=== PATIENT | female | born 1945 | race Caucasian/White ===

== ENCOUNTER 2016-11-30 00:47 | Inpatient (IN) | payer OTHER, MEDICARE ==
[~2016-11-30] VITALS: Ht 154.9 cm; Wt 72.6 kg
[~2016-11-30 00:47] MED LIST: ST. JOSEPH ASPI81 M1 PO; SYNTHROID75 MCG PO; VITAMIN D-32000 UNI1 PO
--- NOTE | 2016-11-30 09:55 | RADIOLOGY REPORT ---
EXAMINATION: XR HIP, LEFT CLINICAL INFORMATION: Status post left hip replacement. COMPARISON: None. TECHNIQUE: Two views of the left hip. FINDINGS: There is a left hip prosthesis. The acetabular and femoral components appear well aligned. There is no hardware fracture. There is no osseous fracture. There are postsurgical changes including subcutaneous gas. IMPRESSION: Status post left hip replacement. Expected postoperative findings. No evidence of hardware failure.
--- NOTE | 2016-11-30 10:02 | Admission Core Measures ---
Admission Meds I reviewed the following Meds: Current Medications Sig/Won Start time Last Medication Dose Stop Time Status Admin Acetaminophen 975 MG ONCE 11/30 0000 NR (Tylenol) 11/30 2358 Cefazolin Sodium 2,000 MG ONCE 11/30 NR (Kefzol-Ancef Inj) 11/30 2358 Levothyroxine Sodium 0.075 MG DAILY 11/30 1000 AC (Synthroid) Oxycodone HCl 10 MG ONCE 11/30 0000 NR (Roxicodone) 11/30 2358 Acute Coronary Syndrome Inclusion Criteria ACS Diagnosis No Inpatient Core Measures LDL Reminder: If No, please order W/I first 24hr of stay Congestive Heart Failure Inclusion Criteria CHF Diagnosis No Cerebrovascular accident Inclusion Criteria CVA/TIA Diagnosis No Inpatient Core Measures Bedside Swallow Eval Reminder: If BSE failed, place ST order Antithrombotic Reminder: Order Antithrombotic Medication by end of day 2 Antithrombotic Reminder: Document Reason Antithrombotic Not ordered by end of day 2 AFIB/Flutter Reminder: If Present, add to problem list AFIB/Flutter Reminder: Order Anticoag Medication for pts with AFIB/Flutter Atherosclerosis Reminder: If Present, add to problem list LDL Reminder: If No, please order W/I first 24hr of stay PT Order Reminder: If No, please order Venous thromboembolism Inpatient Core Measures VTE Risk Factors: Age > 40, [facility] prophylaxis d/t No contraindications No VTE Pharm Prophylaxis d/t No contraindications Inclusion Criteria - Per Current guidelines, there needs to be overlap - treatment for the first 5 days of Warfarin therapy. - Parenteral Anticoagulation (IV or SC) needs to be - given along with Warfarin therapy. VTE Diagnosis No VTE Type NONE VTE Confirmed by (Test) NONE Problem List As ranked by this Provider includes Assessment & Plan 1. Unilateral primary osteoarthritis, left hip HOME MEDS Home Med List Aspirin ([place] Aspirin) 81 MG TABLET. 1 TAB PO D HEARTHEALTH (Reported ) Cholecalciferol (Vitamin D3) (Vitamin D-3) 2,000 UNIT CAPSULE 1 TAB PO D SUPPLEMENT (Reported) Levothyroxine Sodium (Synthroid) 75 MCG TABLET 1 TAB PO DAILY THYROID ( Reported)
[2016-11-30] MEDS ORDERED: MIRALAX17 G1 PO (10:03)
[2016-11-30] MEDS ORDERED: DILAUDID2 M1 PO (10:03)
[2016-11-30] MEDS ORDERED: COLACE100 M1 PO (10:03)
[2016-11-30] MEDS ORDERED: MS CONTIN15 M2 PO (10:03)
[2016-11-30] MEDS ORDERED: ASPIRIN EC325 M2 PO (10:03)
--- NOTE | 2016-11-30 10:07 | Patient Discharge Instructions ---
Discharge Instructions General Discharge Information You were seen/treated for: Left hip pain related to unilateral primary osteoarthritis You had these procedures: Left total hip replacement Watch for these problems: Increasing pain despite the use of pain medication Increasing redness, warmth or swelling Drainage of any type from incision Inability to bear weight on operative leg Persistent nausea and vomiting Fever greater than 101.5 degrees Do not soak the wound: Yes No bath, but you may shower: Yes Other wound care: Please keep wound clean and dry. No ointments or lotions of any type on or near incision at any time. No exceptions. Your dressing will be changed by your nurse on the second day after your surgery. Daily dry dressing changes are recommended each day thereafter. Do not soak your wound in a bath at any time until otherwise indicated by your surgeon. You may shower, please dry wound immediately after shower with a clean towel. Special Instructions: Aspirin: You are taking this medication to help prevent blood clot formation. Please take with food to protect your stomach lining. Please take as directed. Constipation: Pain medication can cause constipation. Dr. Bowden has recommended that you take Colace and miralax each day. You may discontinue this medication if you develop loose stool or diarrhea. If you wish to continue this medication, it is available over the counter. If you are unable to move your bowels after several days, if you are unable to pass gas and are developing bloating, nausea, or vomiting as a result, please contact your doctor. Diet Continue normal diet: Yes Recommended Diet: Regular Activity Full Activity/No Limits: No Activity Self Limited: Yes Pounds, do NOT lift more than: 10 Activity Limited to: Weight bear as tolerated Acute Coronary Syndrome Inclusion Criteria At DC or during hospital stay patient has or had the following: ACS DIAGNOSIS No Discharge Core Measures Meds if any: Prescribed or Continued at Discharge Meds if any: NOT Prescribed or Continued at Discharge Congestive Heart Failure Inclusion Criteria At DC or during hospital stay patient has or had the following: CHF DIAGNOSIS No Discharge Core Measures Meds if any: Prescribed or Continued at Discharge Meds if any: NOT Prescribed or Continued at Discharge Cerebrovascular accident Inclusion Criteria At DC or during hospital stay patient has or had the following: CVA/TIA Diagnosis No Discharge Core Measures Meds if any: Prescribed or Continued at Discharge Meds if any: NOT Prescribed or Continued at Discharge Venous thromboembolism Inclusion Criteria VTE Diagnosis No VTE Type NONE VTE Confirmed by (Test) NONE Discharge Core Measures - Per Current guidelines, there needs to be overlap - treatment for the first 5 days of Warfarin therapy. - If discharged on Warfarin prior to 5 days of - overlap therapy, the patient will need to be - assessed for post discharge needs including - *Post discharge parental anticoagulation - *Warfarin and/or parental anticoagulation education - *Follow up date to check INR post discharge At least 5 days overlap therapy as Inpatient No Meds if any: Prescribed or Continued at Discharge Note: Overlap Therapy is Warfarin and Anticoagulant Meds if any: NOT Prescribed or Continued at Discharge
--- NOTE | 2016-11-30 10:10 | Surgical Discharge Summary ---
Visit Information Visit Dates Admission Date: 11/30/16 Discharge Date: 12/01/16 History of Present Illness Chief Complaint: Left hip pain related to unilateral primary osteoarthritis Medical History Isolation History: Standard Surgical History Pertinent Surgical History: non-contributory Review of Systems: See H&P Hospital Course Course Attending Physician: ABIGAIL FARNSWORTH MD Primary Care Physician: NINOSKA FLYNN MD Hospital Course: Patient was admitted to the hospital for an elective total joint replacement. The procedure was tolerated well and patient was transferred to a general surgical floor. Diet was advanced and tolerated, and the patient voided spontaneously. The patient was evaluated and treated by physical therapy. At the time of hospital discharge, the vital signs were stable, neurovascular status was intact, and pain was controlled with the use of oral pain medications. Allergies: Coded Allergies: No Known Allergies (11/21/16) Disposition Summary Disposition Principal Diagnosis: Left hip unilateral primary osteoarthritis Additional Diagnosis: None Discharge Disposition: home health services Discharge Instructions General Discharge Information Code Status: Full Code Patient's Diet: Regular, advance as tolerated Patient's Activity: WBAT Follow-Up Instructions/Appts: Follow up with Dr. Farnsworth in 6 weeks from date of surgery. Please call his office to arrange and/or confirm this appointment. Medications at Discharge Discharge Medications: Stop taking the following medications: Aspirin ([place] Aspirin) [address].DR CARDOZO Every Day Continue taking these medications: Levothyroxine Sodium (Synthroid) 75 MCG TABLET 1 Tablet ORAL DAILY Comments: Last Taken:12/01/16 Time:06:15 AM Cholecalciferol (Vitamin D3) (Vitamin D-3) 2,000 UNIT CAPSULE 1 Tablet ORAL Every Day Comments: NOT GIVEN IN HOSPITAL Start taking the following new medications: Aspirin (Ecotrin*) 325 MG TABLET. 1 Tablet ORAL TWICE DAILY Qty = 60 No Refills Comments: Last Taken:12/01/16 Time:09:45AM Docusate Sodium (Colace) 100 MG CAPSULE 1 Capsule ORAL TWICE DAILY Qty = 14 No Refills Instructions: DISCONTINUE USE IF YOU DEVELOP LOOSE STOOL OR DIARRHEA Comments: Last Taken:12/01/16 Time:09:45 AM Polyethylene Glycol 3350 (Miralax) 17 GRAM POWD.PACK 1 Packet ORAL DAILY Qty = 7 No Refills Instructions: dissolve in water, DISCONTINUE USE IF YOU DEVELOP LOOSE STOOL OR DIARRHEA Comments: Last Taken:12/01/16 Time: 09:45AM Hydromorphone HCl (Dilaudid) 2 MG TABLET 1-2 Tablet ORAL EVERY 4-6 HOURS NEEDED as needed for PAIN Qty = 36 No Refills Comments: Last Taken:12/01/16 Time:03:45AM 2MG GIVEN Morphine Sulfate (Ms Contin) 15 MG TABLET.ER 1 Tablet ORAL TWICE DAILY Qty = 2 No Refills Comments: NOT GIVEN IN HOSPITAL
--- NOTE | 2016-11-30 12:00 | NUR ---
ADMISSION NOTE: PT ARRIVED TO FLOOR IN STRETCHER WITH DISTRIBUTION AND WAS MET BY PT. ORTHO BP/PULSE WAS: SUPINE 121/62, 78, SITTING 148/88, 83, STANDING 149/111, 80. A/OX3, ROOM AIR, +CMS, IV INTACT, IVF RUNNING PER MD ORDER, ALPS ON. PT INCONTINENT OF URINE X2 DUE TO NUMBNESS TO AREA. PAIN 0/10. DSG TO LEFT HIP C/D/I. ORIENTED TO ROOM. WILL CONTINUE TO MONITOR.
[2016-11-30 12:05] VITALS: BP 94/60
--- NOTE | 2016-11-30 13:37 | PN- Orthopedic ---
Subjective Subjective: POST-OP NOTE: No complaints. No pain at this moment. Ambulated once already. No dizziness. No shortness of breath. No chest pains. Voided once post-op without difficulty. Shes weary of taking narcotic pain medication, as she had adverse effects in her past "on a morphine drip" after a previous surgery. Her goal is to go home tomorrow. Objective Vital Signs and I&Os Vital Signs Date Time Temp Pulse Resp B/P B/P Pulse O2 O2 Flow FiO2 Mean Ox Delivery Rate 11/30 1205 97.6 70 18 94/60 95 Room Air Intake & Output 11/30 1600 11/30 0800 11/30 0000 11/29 1600 11/29 0800 11/29 0000 Intake Total Output Total Balance Patient 160 lb Weight Weight Reported by Patient Measurement Method Physical Exam: General - alert & oriented x 3. out of bed to chair. no acute distress. Lungs - clear bilaterally. no w/r/r. Cardiac - s1s2. reg. Abdomen - soft. nontender. Extremities - left hip dressing c/d/i. no drains. no hematoma. nvi. calves soft and nontender b/l. Current Medications: Current Medications Sig/Won Start time Last Medication Dose Route Stop Time Status Admin Acetaminophen 1,000 MG Q6 11/30 1200 AC 11/30 IV 12/01 0601 1219 Acetaminophen 0 .STK-MED ONE 11/30 0715 DC PO Acetaminophen 975 MG ONCE 11/30 0000 DC PO 11/30 2359 Aspirin 325 MG BID 11/30 1000 AC PO Cefazolin Sodium 2 GM IQ8 11/30 1600 AC N/A 1 UNIT IV 12/01 0029 Cefazolin Sodium 2,000 MG ONCE 11/30 0000 DC IV 11/30 2359 Dextrose/Sodium 1,000 ML .[id number] 11/30 1215 AC 11/30 Chloride IV 1218 Docusate Sodium 100 MG BID 11/30 1000 AC PO Hydromorphone HCl 2 MG Q4P PRN 11/30 1215 AC PO Hydromorphone HCl 4 MG Q4P PRN 11/30 1215 AC PO Ketorolac 15 MG Q8P PRN 11/30 1215 AC Tromethamine IV 12/03 1207 Levothyroxine Sodium 0.075 MG 0712/01 0700 AC PO Levothyroxine Sodium 0.075 MG DAILY 11/30 1000 DC PO Morphine Sulfate 2 MG Q2P PRN 11/30 1215 AC IV Omeprazole 40 MG DAILY AC 12/01 0700 AC PO Ondansetron HCl 4 MG Q6P PRN 11/30 1215 AC IV Oxycodone HCl 0 .STK-MED ONE 11/30 0716 DC PO Oxycodone HCl 10 MG ONCE 11/30 0000 DC PO 11/30 2359 Polyethylene Glycol 17 GM DAILY 11/30 1000 AC PO Promethazine HCl 12.5 MG Q6P PRN 11/30 1215 AC IV 12/07 0959 Assessment/Plan Assessment/Plan This 71 year old female with hx gerd, hypothyroidism, mvp, is POD#0 s/p left total hip replacement for unilateral primary osteoarthritis advance diet as tolerated pain control as ordered asa bid - dvt ppx ancef x 2 doses amanda-operatively PT eval home meds ordered d/c planning for home tomorrow will d/w Core Measures/Miscellaneous Venous Thromboembolism VTE Risk Factors: Age > 40, Surgery VTE Contraindications: No Contraindications VTE Diagnosis: No VTE Type: NONE VTE Confirmed by (Test): NONE Beta Jose Is Beta Jose a Home Med? No Antibiotics Is Patient on Antibiotics? Yes If Yes: prophylaxis
[2016-11-30 14:48] VITALS: BP 90/60
[2016-11-30 16:01] VITALS: BP 102/60
--- NOTE | 2016-11-30 17:39 | Operative Report ---
Operative/Inv Procedure Report Surgery Date: 11/30/16 Name of Procedure: Left total hip replacement Pre-Operative Diagnosis: Primary left hip DJD Post-Operative Diagnosis: Same Estimated Blood Loss: 250 Surgeon/Direct Support Worker: DAJA MAO,ABIGAIL Drew Anesthesia: block Operative/Procedure Note Note: Description of Procedure: The patient was taken to the operating room and positively identified. After induction of spinal anesthesia and administration of appropriate pre-operative antibiotics, the patient was positioned supine on the operating room table and all bony prominences were well padded. After performing a surgical timeout, the left lower extremity was prepped and draped in the usual sterile fashion. A direct anterior approach was made to the left hip. The incision was carried sharply through superficial soft tissues to the level of the fascia. Meticulous hemostasis was maintained with Bovie electocautery. The fascia over the tensor fascia karina muscle was opened sharply and the interval between the TFL and the sartorius was entered bluntly taking care to stay lateral to the lateral femoral cutaneous nerve. Retractors were placed around the femoral neck and the pericapsular fat was identified. The ascending branches of the lateral femoral circumflex vessels were identified and carefully coagulated. The pericapsular fat and anterior capsule were then resected. A napkin ring osteotomy was performed and the femoral head was removed without difficulty. Attention was then turned to the acetabulum. After appropriate placement of retractors, the acetabulum was exposed. Soft tissue was cleaned from the acetabular margin and notch. Overhanging osteophytes were removed and the teardrop was exposed. The acetabulum was then sequentially reamed to accept a 54 mm Jacques Tritanium hemispherical solid back shell. This was impacted into place in the appropriate position and fitted with a 36 mm Trident X3 zero degree polyethylene insert. Attention was then turned to the femur. After performing the appropriate ligament releases, the proximal femur was exposed. It was then sequentially broached to accept a size 3 Jacques accolade 2 stem. This was trialed for leg length and stability. The trial component was removed and the final component was impacted into place. The trunnion was carefully cleaned and fit with a 36 mm, -2.5 Biolox delta ceramic femoral head. The hip was reduced and put through a full range of motion and found to be stable. The articular space was then irrigated with sterile saline. The periarticular soft tissues were infilitrated with Marcaine. The fascial layer was closed with interrupted #1 vicryl suture and the skin was re-approximated with interrupted 2 -0 vicryl. The skin was closed with a running 3-0 V-Lock suture. Steri-strips and a sterile dressing were applied. The patient was awakened and taken to the recovery room in satisfactory condition.
[2016-11-30 18:00] VITALS: BP 100/60
[2016-11-30 21:10] VITALS: BP 115/62
[2016-11-30 23:35] VITALS: BP 110/60
[2016-12-01 03:48] VITALS: BP 100/60
--- NOTE | 2016-12-01 09:13 | PN- Orthopedic ---
Subjective Subjective: No acute overnight events reported. Patient states that surgical site is sore but discomfort responds to dilaudid. Feels loopy with dilaudid and is interested in trying tylenol for po pain control. Denies chest pain, shortenss of breath and difficulty breathing. Denies nausea and vomitting. Has been OOB to ambulate and cleared pt. Anticipates dc to home today. Objective Vital Signs and I&Os Vital Signs Date Time Temp Pulse Resp B/P B/P Pulse O2 O2 Flow FiO2 Mean Ox Delivery Rate 12/01 0348 98.1 62 20 100/60 96 Room Air 11/30 2335 98.0 69 20 110/60 94 Room Air 11/30 2110 98.0 67 18 115/62 94 11/30 1800 98.0 81 18 100/60 95 11/30 1625 Room Air 11/30 1601 97.4 68 18 102/60 96 11/30 1448 97.9 75 18 90/60 93 Room Air 11/30 1205 97.6 70 18 94/60 95 Room Air Intake & Output 12/01 1600 12/01 0800 12/01 0000 11/30 1600 11/30 0800 11/30 0000 Intake Total 1400 Output Total 1000 Balance 400 Intake, IV 600 Intake, Oral 800 Number 0 Bowel Movements Output, Urine 1000 Patient 160 lb Weight Weight Reported by Patient Measurement Method Physical Exam: General: Alert and oriented x3, no acute distress Cardiac: RRR, s1s2 Pulm: CTA bilaterally ABD: non-tender, non-distended Extremities: Moves all extremities, distal sensation intact, motor 5/5 in plantar and dorsi flexion, skin warm and well perfused, dp pulses palpable bialterally, bialteral calves soft and non-tender Surgical site: Left hip, dressing dry and intact, some bruising noted amanda- incisional, no warmth, thigh compartment soft. Assessment/Plan Assessment/Plan This is a 71 year old female, POD 1, s/p l THR, doing well -Continue current po pain regimen, may give tylenol po as needed -Continue OOB, wbat -Diet as toelrated -DC iv fluids -ASA 325 bid for dvt ppx -DC to home with services today -Will d/w Dr. Bowden Core Measures/Miscellaneous Venous Thromboembolism VTE Risk Factors: Age > 40, Surgery VTE Contraindications: No Contraindications VTE Diagnosis: No VTE Type: NONE VTE Confirmed by (Test): NONE Beta Jose Is Beta Jose a Home Med? No Antibiotics Is Patient on Antibiotics? Yes If Yes: prophylaxis
[2016-12-01 09:28] LABS: ABSOLUTE BASOPHIL COUNT 0 /CUMM (0.0-0.2); ABSOLUTE EOSINOPHIL COUNT 0.1 /CUMM (0.0-0.7); ABSOLUTE GRANULOCYTE CT 5.7 /CUMM (1.4-6.5); ABSOLUTE MONOCYTE COUNT 0.5 /CUMM (0.10-0.60); BASOPHIL % 0.5 % (0.0-2.0); EOSINOPHIL % 0.9 % (0-5); GRANULOCYTE % 78.3 % (42.2-75.2); HEMATOCRIT 33.9 % (37-47); MEAN CORPUSCULAR HGB 30.3 PG (27.0-31.0); MEAN CORPUSCULAR HGB CONC 33.5 G/DL (33.0-37.0); MEAN CORPUSCULAR VOLUME 90.2 FL (81.0-99.0); MEAN PLATELET VOLUME 9.4 FL (7.4-10.4); PLATELET COUNT 146 /CUMM (130-400); RBC DISTRIBUTION WIDTH 12.7 % (11.5-14.5); RED BLOOD CELL CT 3.76 /CUMM (4.20-5.40); WHITE BLOOD CELL COUNT 7.3 /CUMM (4.8-10.8)
[2016-12-01 10:00] VITALS: BP 105/64
== END 2016-12-01 13:35 | disposition home health service (06) | DRG 470 ==
LOC: SDA 00:47 → 2NB 00:47 → ENRESERV 09:40 → CANRESERV 09:40 → ENRESERV 09:52 → ENTRNSPT 10:06 → EDTRNSPT 10:09 → EDTRNSPTSTS 11:40 → 2NB 11:48 → CMPTRNSPT 12:27 → 2NB 12-01 13:35
PROVIDERS: Nurse Practitioner; ADMIT Orthopaedic Surgery
PROC: 0SRB04A Replacement of Left Hip Joint with Ceramic on Polyethylene Synthetic Substitute, Uncemented, Open Approach (ICD-10-PCS; principal; 2016-11-30)
DX: M16.12 Unilateral primary osteoarthritis, left hip (principal); E03.9 Hypothyroidism, unspecified; K21.9 Gastro-esophageal reflux disease without esophagitis; I34.1 Nonrheumatic mitral (valve) prolapse
CPT/HCPCS: 1255; 36415; 73502-LT; 82436; 97110-GO; 97116-GO; 97161-GP; 97530-GO; J0131; J0690; J0735; J1100; J2405; J2550; J7042